=== PATIENT | male | born 1950 | race Two or more races ===

== ENCOUNTER 2017-07-16 11:58 | Inpatient (IN) | payer OTHER ==
[~2017-07-16] VITALS: Ht 170.2 cm; Wt 78.0 kg
[2017-07-16 12:35] LABS: BASOPHILS % 0.7 % (0.0-2.0); EOSINOPHILS % 1.7 % (0.0-5.0); HEMOGLOBIN. 12.3 g/dL (14.0-18.0); LYMPHOCYTES % 8.5 % (20.0-50.0); MEAN CORPUSCULAR VOLUME 87.8 fL (80.0-94.0); MEAN PLATELET VOLUME 7.3 fl (7.4-10.4); MONOCYTES % 5.8 % (2.0-8.0); NEUTROPHILS % 83.3 % (40.0-76.0); PLATELET 258 x1000/uL (130-400); RED CELL DISTRIBUTION WIDTH 13.2 % (11.6-14.6)
[2017-07-16] MEDS ORDERED: MORPHINE SULFATE 4 MG/ML CPJ (NOT FOR IM USE) IV STA (12:35)
[2017-07-16] MEDS ORDERED: NITROGLYCERIN OINT 1GM/INCH UDPKT TD STA (12:35)
[2017-07-16] MEDS ORDERED: ONDANSETRON HCL 4MG/2ML VIAL IV STA (12:35)
[2017-07-16 12:42] LABS: INR 1.1; PARTIAL THROMBOPLASTIN TIME 26.7 sec (23.4-31.0); PROTHROMBIN TIME 11.1 sec (9.4-11.6)
[2017-07-16] MEDS ORDERED: ASPIRIN 81MG TABLET PO ONE (12:45)
[2017-07-16] MEDS ORDERED: LEVOFLOXACIN 750MG PREMIX 150 ML IV ONE (12:45)
[2017-07-16 12:49] LABS: CARBON DIOXIDE 23 mEq/L (21-32); CHLORIDE 103 mEq/L (98-107); CREATINE KINASE MB FRACTION 0.8 ng/mL (0.5-3.6); TROPONIN I < 0.02 ng/mL (0.00-0.04)
[2017-07-16 13:00] LABS: CREATINE KINASE 2210 IU/L (39-308)
[2017-07-16] MEDS ORDERED: ATENOLOL 50 MG TABLET PO ONE (13:00)
[2017-07-16] MEDS ORDERED: ATORVASTATIN CALCIUM 10MG TABLET PO SCH (13:00)
[2017-07-16] MEDS ORDERED: SODIUM CHLORIDE 0.9% 1,000 ML IV ONE (13:08)
[2017-07-16] MEDS ORDERED: TRAMADOL 50MG TABLET PO ONE (14:00)
[2017-07-16 15:30] VITALS: BP 111/62
[2017-07-16] MEDS ORDERED: SODIUM CHLORIDE 0.9% 1,000 ML IV SCH (15:45)
[2017-07-16] MEDS ORDERED: ACETAMINOPHEN 325MG TABLET PO PRN (15:45)
[2017-07-16] MEDS ORDERED: IPRATROPIUM/ALBUTEROL 0.5-3(2.5)MG/3ML NEB HHN PRN (15:45)
[2017-07-16] MEDS ORDERED: MORPHINE SULFATE 4 MG/ML CPJ (NOT FOR IM USE) IV PRN (15:45)
[2017-07-16] MEDS ORDERED: MAGNESIUM HYDROXIDE 400MG/5ML 30ML UDC PO PRN (15:45)
[2017-07-16] MEDS ORDERED: MAGNESIUM HYDROXIDE 400MG/5ML 30ML UDC PO NR (15:45)
[2017-07-16] MEDS ORDERED: ENOXAPARIN 40MG/0.4ML SYR SUBCUT SCH (16:00)
[2017-07-16] MEDS ORDERED: ATEN50TA PO (16:14)
[2017-07-16] MEDS ORDERED: [UNRECOGNIZED DRUG - CODE] (16:14)
[2017-07-16] MEDS ORDERED: ASPI-986 PO (16:14)
[2017-07-16] MEDS ORDERED: ATOR10TA PO (16:14)
[2017-07-16 17:37] LABS: TROPONIN I < 0.02 ng/mL (0.00-0.04)
[2017-07-16 17:41] LABS: CREATINE KINASE MB FRACTION 1.7 ng/mL (0.5-3.6)
[2017-07-16 18:02] LABS: CREATINE KINASE 8572 IU/L (39-308)
[2017-07-16] MEDS ORDERED: KETOROLAC 10MG TABLET PO NR (19:00)
[2017-07-16 20:00] VITALS: BP 117/70
[2017-07-16] MEDS ORDERED: DEXTROSE 50% WATER 50ML SYRINGE IV PRN (20:30)
[2017-07-16] MEDS ORDERED: BLOOD SUGAR DIAGNOSTIC STRIP TEST SCH (21:00)
[2017-07-16] MEDS ORDERED: INSULIN LISPRO 100 UNITS/ML SUBCUT SCH (21:00)
== END 2017-07-16 21:35 | disposition short-term general hospital (02) | DRG 871 ==
LOC: ER 12:05 → 8WST 13:16 → EDBEDREQ 13:23 → ENRESERV 13:41
PROVIDERS: ADMIT Internal Medicine Nephrology; ATTEND Internal Medicine Nephrology
DX: A41.9 Sepsis, unspecified organism (principal); J18.9 Pneumonia, unspecified organism; E87.2 Acidosis; M62.82 Rhabdomyolysis; I10 Essential (primary) hypertension; E78.00 Pure hypercholesterolemia, unspecified; E78.5 Hyperlipidemia, unspecified; E11.9 Type 2 diabetes mellitus without complications
CPT/HCPCS: 36415; 71010; 80053; 80061; 82550; 82553; 82962; 83036; 83605; 83615; 83690; 83880; 84443; 84484; 85025; 85610; 85730; 87040; 93005; 93970; 94664; 96365; 96375; 99291; J1650; J1815; J1956; J2270; J2405; J7030; J7620